=== PATIENT | male | born 1975 | race Caucasian/White ===

== ENCOUNTER 2020-06-13 09:40 | Emergency (ER) | payer BC, SELFPAY ==
[2020-06-13 09:42] VITALS: BP 149/99; PULSE 83; RESP 19; TEMP 36.9; O2SAT 98; BMI 34.7
--- NOTE | 2020-06-13 10:14 | HMH.EDUTC ---
[facility] [place] Clinical Impression: Upper respiratory infection Qualifiers: URI type: unspecified viral URI Qualified Code(s): J06.9 - Acute upper respiratory infection, unspecified Disposition: Home, Self-Care Condition on Discharge: Good Instructions: DI for Viral Upper Respiratory Infection -- Adult Additional Instructions: Follow up with PCP to recheck BP. COVID test should be available later today. Referrals: PCP,No [Primary Care Provider] - Time of Disposition: 10:17 Medical Decision Making - Manoj Inquiry Pt receiving controlled substance: No Vital Signs: 06/13/20 09:42 Temperature Source Oral Pulse Rate [Left] 70 Respiratory Rate 17 Blood Pressure [Right Arm] 000/00 L Blood Pressure Source [Right Arm] Automatic Cuff Blood Pressure Position [Right Arm] Sitting 02 Sat by Pulse Oximetry 99 Oxygen Delivery Method Room Air [facility] [place] HPI - General Stated complaint: soa Time Seen by Provider: 06/13/20 10:14 Mode of Arrival: Ambulatory Source of Information: Patient Limitations: No Limitations HEENT Symptoms (Recalled from RN notes): No Resp Symptoms (Recalled from RN notes): No Skin Symptoms (Recalled from RN notes): No MS Symptoms (Recalled from RN notes): No Functional Status (Recalled from RN notes): stable - History of Present Illness Provider Complaint: Cough, wheezing, drainage X 1 week. No fever. Has been taking Sudafed, Mucinex. Denies loss of taste or smell. No vomiting or diarrhea. Work is requiring negative COVID test before he can return to work. Onset (ago): week(s) (1) Location: chest Radiation: non-radiation Relieving factors: none Exacerbating factors: none Associated symptoms: cough Treatments prior to arrival: other (Mucinex, Sudafed) - Worker's Comp Is this a Worker's Comp case?: No Is this an H Worker's Comp?: No Is this a [place] Worker's Comp?: No [facility] History - Hepatitis A Screen Drug use history?: No High risk sexual behaviors?: No History of sexually transmitted infection?: No Currently employed?: No Childcare worker?: No Do you have indoor plumbing?: Yes Do you have electricity?: Yes Attestation statement:: This patient has been screened for Hepatitis A risk factors. ROS Obtained: Yes All systems reviewed & no additional complaints - Respiratory Respiratory: Yes cough, Yes wheezing Physical Exam - General General appearance: alert, in no apparent distress - Head Head exam: atraumatic, normocephalic, normal inspection - Eye Eye exam: Present: normal appearance, PERRL, EOMI - ENT ENT exam: Present: normal exam, normal oropharynx, mucous membranes moist, TM's normal bilaterally, normal external ear exam - Neck Neck exam: Present: normal inspection, full ROM, trachea midline. Absent: meningismus, lymphadenopathy - Chest Chest inspection: Present: normal inspection, symmetric chest wall rise. Absent: tenderness - Respiratory Respiratory exam: Present: normal lung sounds bilaterally. Absent: respiratory distress - Cardiovascular Cardiovascular exam: Present: regular rate, normal rhythm. Absent: JVD - Extremities Exam Extremities exam: Present: normal inspection, full ROM, normal capillary refill. Absent: calf tenderness - Neurological Exam Neurological exam: Present: alert, oriented X3 - Psychiatric Psychiatric exam: Present: normal affect, normal mood - Skin Skin exam: Present: warm, dry, intact, normal color - Lymphatic Lymphatic Findings: no adenopathy
[2020-06-13 10:33] VITALS: BP 149/99; PULSE 83; RESP 19; TEMP 36.9; O2SAT 98; BMI 34.7
[2020-06-13 10:39] VITALS: BP 149/99; PULSE 83; RESP 19; TEMP 36.9; O2SAT 98
--- NOTE | 2020-06-13 16:23 | PC.NURSE ---
PATIENT NOTIFIED OF NEG. COVID RESULTS
== END 2020-06-13 10:38 | disposition home or self-care (01) ==
PROVIDERS: Emergency Provider Physician Assistant
DX: Z20.828 Contact with and (suspected) exposure to other viral communicable diseases (principal); J06.9 Acute upper respiratory infection, unspecified
CPT/HCPCS: 99201; U0003

== ENCOUNTER 2020-10-12 12:54 | Emergency (ER) | payer SELFPAY ==
[2020-10-12 13:06] VITALS: BP 145/90; PULSE 76; RESP 16; TEMP 36.6; O2SAT 96; BMI 33.0
--- NOTE | 2020-10-12 13:12 | HMH.EDUTC ---
[facility] [place] Clinical Impression: Exposure to COVID-19 virus Disposition: Home, Self-Care Condition on Discharge: Good Instructions: Preventing the Spread of Coronavirus Discharge Instructions Additional Instructions: Drink plenty of fluids. Take tylenol for pain or fever. Return if you begin to have difficulty breathing. Follow up with your regular doctor. GO TO THE ER FOR ANY WORSENING SYMPTOMS Referrals: Sreekanth Romero [Primary Care Provider] - Forms: Work/School Release Time of Disposition: 13:16 Medical Decision Making - Medical Records Medical records reviewed: No: I reviewed the patient's medical records. - Manoj Inquiry Pt receiving controlled substance: No Vital Signs: 10/12/20 13:06 10/12/20 13:23 Temperature 98 F 98 F Temperature Source Tympanic Pulse Rate 74 Pulse Rate [Left] 76 Respiratory Rate 16 16 Blood Pressure 140/89 Blood Pressure [Left Arm] 145/90 H Blood Pressure Mean [Left Arm] 108 02 Sat by Pulse Oximetry 96 Oxygen Delivery Method Room Air [facility] [place] - General Stated complaint: cov test Time Seen by Provider: 10/12/20 13:15 Mode of Arrival: Ambulatory Source of Information: Patient Limitations: No Limitations Description of Symptoms (Recalled from Triage Doc. by RN): pt is starting a new job and employer requires a covid test. pt is asymptomatic and without exposure. HEENT Symptoms (Recalled from RN notes): No Resp Symptoms (Recalled from RN notes): No Skin Symptoms (Recalled from RN notes): No MS Symptoms (Recalled from RN notes): No Functional Status (Recalled from RN notes): na - History of Present Illness Provider Complaint: He needs a covid test due to starting a new job. - Related Data Home Medications Medication Instructions Recorded Confirmed No Known Home Medications 06/13/20 06/13/20 Allergies Allergy/AdvReac Type Severity Reaction Status Date / Time No Known Allergies Allergy Verified 10/12/20 13:10 - Worker's Comp Is this a Worker's Comp case?: No [facility] History - Hepatitis A Screen Drug use history?: No High risk sexual behaviors?: No History of sexually transmitted infection?: No Currently employed?: No Childcare worker?: No Do you have indoor plumbing?: Yes Do you have electricity?: Yes Attestation statement:: This patient has been screened for Hepatitis A risk factors. I have reviewed the patient's past medical history: Yes Medical History: Denies:: Cancer, Diabetes Mellitus Type 1, Diabetes Mellitus Type 2, Internal Pacemaker, MRSA Other Surgeries: No: Pacemaker Amputation: No Fractures: No - Social History Smoking Status: Never smoker Alcohol Intake: never Occupational Status: employed Housing: house Household Members: significant other ROS Obtained: Yes All systems reviewed & no additional complaints - Constitutional Constitutional: Reports system reviewed and no additional complaints, except as docu - Eyes Eyes: Reports system reviewed and no additional complaints, except as docu - ENT Ears, Nose, Mouth, and Throat: Reports system reviewed and no additional complaints, except as docu - Cardiovascular Cardiovascular: Reports system reviewed and no additional complaints, except as docu - Respiratory Respiratory: Reports system reviewed and no additional complaints, except as docu - Gastrointestinal Gastrointestingal: Reports: system reviewed and no additional complaints, except as docu Physical Exam - General General appearance: alert, in no apparent distress - Head Head exam: atraumatic, normocephalic, normal inspection - Eye Eye exam: Present: normal appearance, PERRL, EOMI - ENT ENT exam: Present: normal exam, normal oropharynx, mucous membranes moist, TM's normal bilaterally, normal external ear exam - Neck Neck exam: Present: normal inspection, full ROM, trachea midline. Absent: meningismus, lymphadenopathy - Chest Chest inspection: Present: normal in
[2020-10-12 13:23] VITALS: BP 140/89; PULSE 74; RESP 16; TEMP 36.6
--- NOTE | 2020-10-13 09:35 | PC.NURSE ---
patient notified of positive covid test
== END 2020-10-12 13:23 | disposition home or self-care (01) ==
PROVIDERS: Emergency Provider Nurse Practitioner Family; PCP Family Medicine
DX: U07.1 COVID-19 (principal)
CPT/HCPCS: 99202; G0463; U0003